=== PATIENT | female | born 2000 | race African-American/Black ===

== ENCOUNTER 2023-03-10 13:42 | Emergency (ER) | payer MEDICAID, OTHER ==
[2023-03-10] MEDS ORDERED: Dexamethasone 10 MG/ML VIAL ONE (15:42)
[2023-03-10] MEDS ORDERED: Ibuprofen 800 MG TAB ONE (15:42)
[2023-03-10 16:36] LABS: Bilirubin Neg (Negative); Blood, Urine Negative (Negative); Clarity Clear (Clear); Glucose, Urine (Dipstick) Normal (Negative); Ketone, Urine 50 mg/dL (Negative); Leukocyte Negative (Negative); Nitrite Negative (Negative); Protein, Urine (Dipstick) 15 mg/dl (Neg-Trace); Specific Gravity, Urine 1.025 (1.005-1.030)
[2023-03-10 16:38] LABS: Pregnancy Test - Urine (BHCG) Negative (Negative); Pregu Control Background? CLEAR/WHITE (CLR/WHITE); Pregu Control Bar Appear? YES (CONTROL BAR); Specific Gravity 1.025 (1.002-1.036)
[2023-03-10 16:52] LABS: Bacteria/HPF None Seen HPF (None Seen); CAUTI Indications for Culture Pelvic or flank pain; RBC/HPF 0-3 HPF (0-3); Squamous Epithelial 0-3 HPF (0-3); WBC/HPF 0-3 HPF (0-3)
[2023-03-10 16:52] LABS: SARS-CoV-2 NAA Rapid Test DETECTED (NotDetected)
[2023-03-10 16:53] LABS: Urine Culture Reflex No No
== END 2023-03-10 17:30 | disposition home or self-care (01) ==
LOC: CSHERS 13:42
DX: U07.1 COVID-19 (principal); R07.9 Chest pain, unspecified
CPT/HCPCS: 71046; 81001; 81025; 93005; J1100

== ENCOUNTER 2025-06-07 10:06 | Emergency (ER) | payer MEDICAID, SELFPAY ==
[~2025-06-07 10:06] MED LIST: Iopamidol 300 61% 100 ML VIAL FS ONE
[2025-06-07] MEDS ORDERED: Ketorolac Tromethamine 30 MG (1 mL) VIAL ONE (10:46)
[2025-06-07] MEDS ORDERED: Droperidol 5 MG/2 ML VIAL ONE ×2 (10:46→12:17)
[2025-06-07 11:00] LABS: #Basophils 0.03 10x3/uL (0.0-0.2); #Eosinophils Less than 0.03 10x3/uL (0.0-0.5); #Monocytes 0.44 10x3/uL (0.0-1.1); #Neutrophils 6.96 10x3/uL (1.5-8.4); %Basophils 0.3 % (0.0-2.0); %Eosinophils 0.0 % (0.0-6.0); %Lymphocytes 20.5 % (18.0-47.0); %Monocytes 4.7 % (0.0-10.0); %Neutrophils 74.0 % (40.0-75.0); Hematocrit 38.5 % (34.9-44.5); Hemoglobin 13.3 g/dL (12.0-15.5); Mean Corpuscular Hemoglobin 31.2 pg (27.0-33.0); Mean Corpuscular Volume 90.4 fL (81.6-98.3); Platelet Count 378 10x3/uL (150-450); Red Blood Cell (RBC) Count 4.26 10x6/uL (3.90-5.03); White Blood Cell (WBC) Count 9.41 10x3/uL (3.5-10.5)
[2025-06-07 11:07] LABS: BHCG - Serum Negative (NEGATIVE); Pregs Control Background? CLEAR/WHITE (CLR/WHITE); Pregs Control Bar Appear? YES (CONTROL BAR)
[2025-06-07 11:14] LABS: ALT (SGPT) 15 U/L (Less than 34); AST (SGOT) 23 U/L (11-34); Albumin 4.8 g/dL (3.1-4.5); Alkaline Phosphatase 66 U/L (40-110); Anion Gap 18 mmol/L (10-20); BUN (Urea Nitrogen) 15 mg/dL (7.0-18.7); Bilirubin, Total 0.8 mg/dL (0.3-1.2); Calc. Creatinine Clearance 0 mL/min (70-130); Calcium 10.0 mg/dL (7.8-10.44); Carbon Dioxide 17 mmol/L (22-29); Chloride 107 mmol/L (98-107); Globulin 3.6 g/dL (2.4-3.5); Glucose 137 mg/dL (70-105); Lipase 7 U/L (8-78); Potassium 4.1 mmol/L (3.5-5.1); Sodium 138 mmol/L (136-145)
== END 2025-06-07 15:23 | disposition home or self-care (01) ==
LOC: CSHERS 10:06
DX: R10.84 Generalized abdominal pain (principal); R11.2 Nausea with vomiting, unspecified; F17.290 Nicotine dependence, other tobacco product, uncomplicated
CPT/HCPCS: 36415; 74177; 80053; 83605; 83690; 84703; 85025; 93005; 96374; 96375; 96376; J1790; J1885; Q9967